=== PATIENT | male | born 1965 | race Caucasian/White ===

== ENCOUNTER 2020-07-17 23:17 | Emergency (ER) | payer MEDICARE ==
[~2020-07-17 23:17] MED LIST: BACTROBAN OINT22 GM EXT; IBUPROFEN600 MG PO; KEFLEX CAP 500500 MG PO
[2020-10-07] MEDS ORDERED: IBU600 MG PO (11:03)
[2020-10-07] MEDS ORDERED: HYDROCODON-ACE1 EAC6 PO (11:05)
[2020-10-07] MEDS ORDERED: ONDANSETRON ODT8 MG SL (11:06)
== END 2020-07-18 03:10 | disposition home or self-care (01) ==
LOC: ER1 23:17
DX: S61.213A Laceration without foreign body of left middle finger without damage to nail, initial encounter (principal); F17.210 Nicotine dependence, cigarettes, uncomplicated; W25.XXXA Contact with sharp glass, initial encounter
CPT/HCPCS: 12001; 99282

== ENCOUNTER → 2020-10-07 | Outpatient (CLI) | payer MEDICARE ==
[~2020-10-07] MED LIST changes: +HYDROCODON-ACE1 EAC6 PO; +IBU600 MG PO; +ONDANSETRON ODT8 MG SL
[2020-10-07 11:02] LABS: HEMOGLOBIN 14.3 gm/dl (14.0-17.5); RED BLOOD COUNT 4.33 M/UL (4.20-5.50); WHITE BLOOD COUNT 6.5 K/UL (4.5-11.0)
[2020-10-07 11:21] LABS: BUN/CREATININE RATIO 18 (0-10)
== END ==
LOC: OPSV2 09:30
PROVIDERS: Orthopaedic Surgery
DX: Z01.818 Encounter for other preprocedural examination (principal); S82.141A Displaced bicondylar fracture of right tibia, initial encounter for closed fracture; Z20.822 Contact with and (suspected) exposure to COVID-19
CPT/HCPCS: 36415; 71046; 80048; 85027; 93005; U0003

== ENCOUNTER 2020-10-09 08:25 | Day surgery (SDC) | payer MEDICARE ==
[~2020-10-09] VITALS: Ht 185.4 cm; Wt 83.9 kg
[2020-10-10 05:33] LABS: RED BLOOD COUNT 4.02 M/UL (4.20-5.50)
[2020-10-10 05:42] LABS: HEMOGLOBIN 12.3 gm/dl (14.0-17.5); WHITE BLOOD COUNT 12.3 K/UL (4.5-11.0)
[2020-10-10 05:52] LABS: BUN/CREATININE RATIO 22 (0-10)
== END 2020-10-10 10:31 | disposition home or self-care (01) ==
LOC: OR 08:25 → M/S 17:07 → OR 10-10 10:31
PROVIDERS: Orthopaedic Surgery
DX: S82.141A Displaced bicondylar fracture of right tibia, initial encounter for closed fracture (principal); J44.9 Chronic obstructive pulmonary disease, unspecified; F17.210 Nicotine dependence, cigarettes, uncomplicated; Z79.891 Long term (current) use of opiate analgesic; Z79.1 Long term (current) use of non-steroidal anti-inflammatories (NSAID); Z79.899 Other long term (current) drug therapy; V29.9XXA Motorcycle rider (driver) (passenger) injured in unspecified traffic accident, initial encounter
CPT/HCPCS: 36415; 73590; 76000; 80048; 85025; 97161; C1713; J0690; J1100; J1170; J1885; J2001; J2250; J2405; J2704; J3010; J7120